=== PATIENT | male | born 1965 | race African-American/Black ===

== ENCOUNTER 2021-10-20 00:28 | Emergency (ER) | payer OTHER, SELFPAY ==
--- NOTE | 2021-10-20 | ECG_ITS ---
Test Reason : CP Blood Pressure : / mmHG Vent. Rate : 074 BPM Atrial Rate : 074 BPM P-R Int : 200 ms QRS Dur : 078 ms QT Int : 376 ms P-R-T Axes : 074 075 049 degrees QTc Int : 417 ms Normal sinus rhythm Nonspecific ST abnormality Abnormal ECG When compared with ECG of 02-OCT-2015 20:06, No significant change was found Referred By: Generic ED Physician Electronically Signed By:Julio Cesar Clancy
--- NOTE | ~2021-10-20 | XR_ITS ---
EXAMINATION: XR CHEST CLINICAL INFORMATION: Chest pain COMPARISON: 01/29/2019 TECHNIQUE: Frontal view of the chest was obtained. FINDINGS: The lungs are clear with no focal consolidation. No evidence of pneumothorax, pulmonary edema, or pleural effusions. The cardiomediastinal silhouette is unremarkable. No acute osseous findings. XR/XR chest 1V IMPRESSION: No acute cardiopulmonary findings.
--- NOTE | ~2021-10-20 | CT_ITS ---
EXAMINATION CT CHEST, ABDOMEN AND PELVIS WITH CONTRAST CLINICAL INFORMATION: Left chest pain. Normal EKG. COMPARISON: None. TECHNIQUE: Multidetector volumetric CT imaging of the chest was performed proceeding the administration of intravenous contrast. Subsequently imaging of the chest, abdomen and pelvis was obtained after the administration of 85 mL Omnipaque 350 intravenous contrast without immediate adverse reactions. Coronal and sagittal reformats were reviewed. Maximal intensity projection images reviewed. This CT examination was performed using dose optimization techniques as appropriate, variously including the following: *Automated exposure control *Adjustment of mA and/or kV according to patient size (this includes techniques or standardized protocols for targeted exams where dose is matched to indication/reason for exam; i.e. extremities or head) *Use of iterative reconstruction technique DLP: 898 mGy-cm FINDINGS: VASCULAR: Normal caliber aorta. No dissection. Intramural hematoma not excluded in the absence of noncontrast images. Patent celiac axis, superior mesenteric and inferior mesenteric arteries. Patent renal arteries. Patent bilateral iliofemoral arteries. While examination is not tailored towards evaluation of the pulmonary vasculature, there are no filling defects within the central or segmental pulmonary arterial branches to suggest pulmonary embolism. NONVASCULAR: CHEST: No parenchymal consolidation or pneumonitis. Mild upper lobe predominant centrilobular paraseptal emphysema. Mild diffuse bronchial wall thickening without bronchiectasis. There are a few sub-5 mm groundglass nodules scattered throughout both lungs. No pleural effusion or pneumothorax. Normal heart size. Shotty mediastinal lymph nodes without pathologic enlargement. These are likely reactive. ABDOMEN/PELVIS: Liver normal in size, contour and morphology. Scattered hepatic cysts. No suspicious liver lesions. No intra or extra hepatic biliary dilatation. Gallbladder, pancreas, spleen and adrenal glands are unremarkable. Bilateral renal cysts are benign and require no further follow-up. No bowel related abnormalities. No lymphadenopathy. No ascites. MUSCULOSKELETAL: No acute or suspicious osseous abnormalities. CT/CT angio abdomen pelvis IMPRESSION: * No aortic aneurysm or dissection. * No pulmonary embolism. * No acute pulmonary parenchymal abnormalities. * No acute findings within the abdomen or pelvis. * Mild emphysema. * There are a few scattered sub-5 mm groundglass nodules. Fleischner Society guidelines recommend follow-up CT chest in 2 years.
[2021-10-20 01:56] VITALS: BP 149/90; PULSE 60; RESP 20; TEMP 37; O2SAT 98; BMI 27.3
[2021-10-20 01:58] LABS: Hemoglobin 14.8 g/dl (14.0-18.0); Imm Gran Abs Auto 0.03 X10*3/uL (0.00-0.03); Imm Gran Pct Auto 0.3 % (0.0-0.4); Mean Corpuscular Hemoglobin 30.6 pg (27.0-33.0); PLT CLUMP 1; Red Blood Count 4.83 X10*6/uL (4.60-5.80); SCAN SMEAR FLAG 1
[2021-10-20 02:00] LABS: Basophils Percent Auto 0.2 % (0-2); Eosinophils Absolute Auto 0.1 X10*3/uL (0.0-0.4); Eosinophils Percent Auto 1.4 % (0-4); Hematocrit 45.2 % (42.0-52.0); Lymphocytes Absolute Auto 2.3 X10*3/uL (1.2-4.9); Lymphocytes Percent Auto 24.8 % (20-40); Mean Corpuscular HGB Conc 32.7 g/dl (31.0-36.0); Mean Corpuscular Volume 93.6 fL (80.0-98.0); Mean Platelet Volume 10.7 fL (9.4-12.4); Monocytes Absolute Auto 0.7 X10*3/uL (0.1-1.2); Monocytes Percent Auto 7.8 % (2-11); Neutrophils Absolute Auto 6.1 x10*3/uL (2.0-8.3); Neutrophils Percent Auto 65.5 % (45-73)
[2021-10-20 02:01] LABS: MANUAL DIFF FLAG NO; White Blood Count 9.3 X10*3/uL (4.8-10.8)
[2021-10-20 02:16] LABS: Alanine Aminotransferase 18 U/L (0-40); Albumin Level 4.7 g/dL (3.5-5.0); Alkaline Phosphatase 79 U/L (39-117); Anion Gap 13 (12-20); Aspartate Amino Transferase 22 U/L (5-37); Bilirubin Total 0.7 mg/dL (0.0-1.0); Blood Urea Nitrogen 16 mg/dL (9-16); Calcium 9.8 mg/dL (8.4-10.2); Carbon Dioxide 27 mmol/L (22-29); Chloride 104 mmol/L (96-108); Estimated Glomerular Filt Rate 56; Glucose Random 108 mg/dL (60-115); Potassium 3.8 mmol/L (3.3-5.1); Sodium 140 mmol/L (135-145)
[2021-10-20 02:19] LABS: Troponin-I High Sensitivity 4.8 ng/L (<3.5-35.0)
[2021-10-20 05:23] VITALS: BP 163/89; PULSE 63; RESP 16; TEMP 37.2; O2SAT 97
[2021-10-20 05:38] LABS: Appearance Urine CLEAR; Color Urine YELLOW; Glucose Urine UA NEG (NEG); Leukocyte Esterase Urine NEG (NEG); Nitrite Urine NEG (NEG); Specific Gravity - Urine 1.015 (1.005-1.025); Urine Blood NEG (NEG); Urine Ketones NEG (NEG); Urine Protein NEG (NEG-TRACE)
[2021-10-20 05:44] LABS: UACC Culture Trigger NO
[2021-10-20 06:05] VITALS: RESP 16
[2021-10-20] MEDS: fentaNYL citrate/PF 100 MCG/2 ML VIAL 25 MCG IVPUSH (06:05)
[2021-10-20 06:22] LABS: INTERNATIONAL NORM RATIO 1.1 (0.9-1.1); Prothrombin Time 12.3 SEC (9.9-13.0)
[2021-10-20 06:32] LABS: COVID-19 Test Negative (Negative)
--- NOTE | 2021-10-20 06:44 | ED_ITS ---
HPI - Chest Pain General Chief Complaint: Chest Pain Stated Complaint: Chest pain Time Seen by Provider: 10/20/21 05:55 Source: patient Mode of arrival: ambulatory History of Present Illness HPI narrative: 56-year-old male without significant past medical history presents with reports of left-sided chest pain that was sharp and radiating into the back since yesterday as well as radiating into his left arm without associated dizziness or diaphoresis and then states that throughout the day into the evening began experiencing left-sided abdominal discomfort without associated fever, chills, nausea, vomiting, diarrhea. Patient states he has never had this pain before, denies any traumatic events. Related Data Allergies Allergy/AdvReac Type Severity Reaction Status Date / Time banana [Banana] Allergy Mild NAUSEA Verified 10/20/21 01:55 Review of Systems Review of Systems: Pertinent positives and negatives as stated in HPI 10 point review of systems is otherwise negative. PMFSH Past Medical History Source: nursing notes reviewed Social History Social History Advance Directives: No Advance Directives Information Provided: Yes Physical Exam Vital Signs: Vital Signs: Last Vital Signs Temp 99.0 F 10/20/21 05:23 Pulse 59 10/20/21 06:52 Resp 16 10/20/21 06:52 BP 159/78 H 10/20/21 06:52 Pulse Ox 97 10/20/21 06:52 BMI result Body Mass Index 27.3 VITAL SIGNS: Reviewed. GENERAL: Well developed, well nourished, in no acute distress. HEAD: Normocephalic/atraumatic EYES: PERRLA, EOMI OROPHARYNX: no oral lesions noted, posterior pharynx clear LUNGS: Normal breath sounds. No adventitious sounds or accessory muscle use. SpO2<97> CARDIOVASCULAR: Regular rate and rhythm without noted murmurs, no JVD or lower extremity edema, no asymmetrical pulses ABDOMEN: Soft, non-tender, non-distended with bowel sounds, no pulsatile mass NEUROLOGIC: Alert and oriented x 4. Strength and sensation to light touch were grossly intact x 4. Course Course Course Narrative: 56-year-old male with history and clinical presentation highly concerning for possible dissection given noted hypertension, ethnicity, and on review investigations the absence of any acute findings. Decision made to image the patient for possible dissection and on review of those results there are no acute findings within abdomen or chest. MDM - Chest Pain Lab Data Result diagrams: 10/20/21 01:52 10/20/21 01:52 Labs: Lab Results 10/20/21 10/20/21 10/20/21 Range/Units 01:52 01:52 01:52 WBC 9.3 (4.8-10.8) X10*3/uL RBC 4.83 (4.60-5.80) X10*6/uL Hgb 14.8 (14.0-18.0) g/dl Hct 45.2 (42.0-52.0) % MCV 93.6 (80.0-98.0) fL MCH 30.6 (27.0-33.0) pg MCHC 32.7 (31.0-36.0) g/dl RDW 12.0 (11.0-16.0) % Plt Count TNP MPV 10.7 (9.4-12.4) fL Immature Gran % (Auto) 0.3 (0.0-0.4) % Neut % (Auto) 65.5 (45-73) % Lymph % (Auto) 24.8 (20-40) % [place] % (Auto) 7.8 (2-11) % Eos % (Auto) 1.4 (0-4) % Baso % (Auto) 0.2 (0-2) % Lymph # (Auto) 2.3 (1.2-4.9) X10*3/uL [place] # (Auto) 0.7 (0.1-1.2) X10*3/uL Eos # (Auto) 0.1 (0.0-0.4) X10*3/uL Baso # (Auto) 0.0 (0.0-0.2) X10*3/uL Abs Immat Gran (auto) 0.03 (0.00-0.03) X10*3/uL Absolute Neuts (auto) 6.1 (2.0-8.3) x10*3/uL Absolute Nucleated RBC 0.000 (0.0-0.012) X10*3/uL Nucleated RBC % (auto) 0.0 (0.0-0.2) /100WBC PT (9.9-13.0) SEC INR (0.9-1.1) Sodium 140 (135-145) mmol/L Potassium 3.8 (3.3-5.1) mmol/L Chloride 104 (96-108) mmol/L Carbon Dioxide 27 (22-29) mmol/L Anion Gap 13 (12-20) BUN 16 (9-16) mg/dL Creatinine 1.33 (0.5-1.4) mg/dL Estim Creat Clear Calc 79.0 Estimated GFR 56 Random Glucose 108 (60-115) mg/dL Calcium 9.8 (8.4-10.2) mg/dL Total Bilirubin 0.7 (0.0-1.0) mg/dL AST 22 (5-37) U/L ALT 18 (0-40) U/L Alkaline Phosphatase 79 (39-117) U/L Troponin I High Sens 4.8 (<3.5-35.0) ng/L Total Protein 8.0 (6.5-8.0) g/dL Albumin 4.7 (3.5-5.0) g/dL Urine Color Urine Appearance Urine pH (5.0-8.0) Ur Specific [place] (1.005-1.025) Urine Protein (NEG-TRACE) MG/DL Urine Glucose (UA) (NEG) MG/DL Urine Ketones (NEG) MG/DL Urine Blood (NEG) Urine Nitrite (NEG) Ur Leukocyte Esterase (NEG) COVID-19 (YESSICA) (Negative) COVID-19 Clin Com 10/20/21 10/20/21 10/20/21 Range/Units 05:30 06:09 06:10 WBC (4.8-10.8) X10*3/uL RBC (4.60-5.80) X10*6/uL Hgb (14.0-18.0) g/dl Hct (42.0-52.0) % MCV (80.0-98.0) fL MCH (27.0-33.0) pg MCHC (31.0-36.0) g/dl RDW (11.0-16.0) % Plt Count MPV (9.4-12.4) fL Immature Gran % (Auto) (0.0-0.4) % Neut % (Auto) (45-73) % Lymph % (Auto) (20-40) % [place] % (Auto) (2-11) % Eos % (Auto) (0-4) % Baso % (Auto) (0-2) % Lymph # (Auto) (1.2-4.9) X10*3/uL [place] # (Auto) (0.1-1.2) X10*3/uL Eos # (Auto) (0.0-0.4) X10*3/uL Baso # (Auto) (0.0-0.2) X10*3/uL Abs Immat Gran (auto) (0.00-0.03) X10*3/uL Absolute Neuts (auto) (2.0-8.3) x10*3/uL Absolute Nucleated RBC (0.0-0.012) X10*3/uL Nucleated RBC % (auto) (0.0-0.2) /100WBC PT 12.3 (9.9-13.0) SEC INR 1.1 (0.9-1.1) Sodium (135-145) mmol/L Potassium (3.3-5.1) mmol/L Chloride (96-108) mmol/L Carbon Dioxide (22-29) mmol/L Anion Gap (12-20) BUN (9-16) mg/dL Creatinine (0.5-1.4) mg/dL Estim Creat Clear Calc Estimated GFR Random Glucose (60-115) mg/dL Calcium (8.4-10.2) mg/dL Total Bilirubin (0.0-1.0) mg/dL AST (5-37) U/L ALT (0-40) U/L Alkaline Phosphatase (39-117) U/L Troponin I High Sens (<3.5-35.0) ng/L Total Protein (6.5-8.0) g/dL Albumin (3.5-5.0) g/dL Urine Color YELLOW Urine Appearance CLEAR Urine pH 6.0 (5.0-8.0) Ur Specific [place] 1.015 (1.005-1.025) Urine Protein NEG (NEG-TRACE) MG/DL Urine Glucose (UA) NEG (NEG) MG/DL Urine Ketones NEG (NEG) MG/DL Urine Blood NEG (NEG) Urine Nitrite NEG (NEG) Ur Leukocyte Esterase NEG (NEG) COVID-19 (YESSICA) Negative (Negative) COVID-19 Clin Com See Note ECG Data ECG #1: Attestation: I personally reviewed and interpreted this ECG as follows: Prior ECG tracings: not available for review Interpretation: Normal sinus rhythm, HR-74, no STEMI, SC/QRS/QTC is within normal limits. Discharge Plan Discharge Clinical Impression: Chest pain, Flank pain Patient Disposition: Home, Self-Care Instructions: Chest Pain (ED), Musculoskeletal Pain (ED), Flank Pain (ED) Additional Instructions: 1. Tylenol 1000 mg, orally, every 6 hours as needed for pain control. Do not exceed 4000 mg within 24 hours. 2. Ibuprofen 400 mg, orally with milk or food, every 6 hours as needed for pain control. You may take this medication with Tylenol for improved symptom relief. 3. Follow-up with your primary care provider for re-evaluation further outpatient management. Return to the ER for acute worsening of symptoms. Referrals: Suyapa Lopez MD [Primary Care Provider] - 2 days
[2021-10-20 06:52] VITALS: BP 159/78; PULSE 59; RESP 16; O2SAT 97
[2021-10-20] MEDS: iohexoL 350 MG/ML 100 ML INFUS..BTL IV (07:05)
[2021-10-20] MEDS: Acetaminophen 325 MG TABLET 975 MG PO (08:09)
[2021-10-20] MEDS: Ketorolac Tromethamine 30 MG/ML VIAL 15 MG IVPUSH (08:10)
[2021-10-20 08:15] VITALS: BP 120/83; PULSE 78; RESP 12; O2SAT 95
== END 2021-10-20 08:50 | disposition home or self-care (01) ==
PROVIDERS: Emergency Provider Student in an Organized Health Care Education/Training Program; PCP Internal Medicine
DX: R07.9 Chest pain, unspecified (principal); R10.9 Unspecified abdominal pain; Z20.822 Contact with and (suspected) exposure to COVID-19
CPT/HCPCS: 36415; 71045; 71275; 74174; 80053; 81003; 84484; 85025; 85610; 87635; 93005; 96374; 96375; 99284; J1885; J3010; Q9967

== ENCOUNTER → 2023-01-14 13:58 | Outpatient (BNVA) | payer OTHER, SELFPAY | PROVIDERS: PCP Internal Medicine; Visit Provider Anesthesiology | DX: G89.4 Chronic pain syndrome (principal); G56.43 Causalgia of bilateral upper limbs; G57.73 Causalgia of bilateral lower limbs; S14.109A Unspecified injury at unspecified level of cervical spinal cord, initial encounter | CPT/HCPCS: 99202 ==